=== PATIENT | female | born 1950 | race Caucasian/White ===

== ENCOUNTER 2021-12-23 13:00 | Outpatient (RCR) | payer MEDICARE, SELFPAY | END 2022-11-17 11:08 | disposition home or self-care (01) | PROVIDERS: Visit Provider Emergency Medicine Sports Medicine | DX: M17.0 Bilateral primary osteoarthritis of knee (principal); Z51.89 Encounter for other specified aftercare | CPT/HCPCS: 97110; 97140; 97161; 97162 ==

== ENCOUNTER 2022-05-17 15:15 | Outpatient (RCR) | payer MEDICARE, SELFPAY | END 2022-07-09 15:26 | disposition home or self-care (01) | PROVIDERS: PCP Emergency Medicine Sports Medicine; Referring Provider Emergency Medicine Sports Medicine; Visit Provider Emergency Medicine Sports Medicine | DX: M17.12 Unilateral primary osteoarthritis, left knee (principal); Z51.89 Encounter for other specified aftercare | CPT/HCPCS: 97110; 97162 ==

== ENCOUNTER 2023-04-20 13:00 | Outpatient (RCR) | payer MEDICARE, SELFPAY | END 2023-06-24 14:23 | disposition home or self-care (01) | PROVIDERS: PCP Emergency Medicine Sports Medicine | DX: M17.11 Unilateral primary osteoarthritis, right knee (principal); M25.561 Pain in right knee; R26.9 Unspecified abnormalities of gait and mobility; Z74.09 Other reduced mobility; Z51.89 Encounter for other specified aftercare | CPT/HCPCS: 97110; 97140; 97161 ==

== ENCOUNTER 2023-05-31 15:07 | Emergency (ER) | payer MEDICARE, SELFPAY ==
[2023-05-31 15:18] VITALS: BP 157/88; PULSE 73; RESP 16; TEMP 36.6; O2SAT 99; BMI 38.0
--- NOTE | 2023-05-31 15:59 | ED.GENADULT ---
HPI - General Adult General Chief complaint: Headache/Migraine Stated complaint: Migraine Time Seen by Provider: 05/31/23 15:39 History of Present Illness HPI narrative: This 72-year-old female was sent here from urgent care because of her report some visual changes related to headaches. The patient states that she has had headaches with visual changes throughout most of her life. They were happening frequently and intensely when she was in her young adult years and now over the past 10 years have resumed again. She states that her headache is rather mild. She does get which she calls glittery visual changes. She does not have any neurologic deficits otherwise. Related Data Home Medications Medication Instructions Recorded Confirmed acetaminophen 500 mg tablet 500 - 1,000 mg PO Q6H PRN pain 05/31/23 05/31/23 amlodipine 10 mg tablet 10 mg PO QDAY 05/31/23 05/31/23 calcium carbonate 500 mg calcium 500 mg PO QDAY 05/31/23 05/31/23 (1,250 mg) chewable tablet (Calcium 500) celecoxib 100 mg capsule mg PO 05/31/23 05/31/23 cetirizine 10 mg tablet 10 mg PO DAILY 05/31/23 05/31/23 cholecalciferol (vitamin D3) 62.5 mcg PO 05/31/23 05/31/23 mcg (2,500 unit) capsule duloxetine 20 mg capsule,delayed 40 mg PO QPM 05/31/23 05/31/23 release duloxetine 60 mg capsule,delayed mg PO 05/31/23 05/31/23 release levothyroxine 75 mcg tablet 75 mcg PO DAILY 05/31/23 05/31/23 losartan 50 mg tablet 50 mg PO DAILY 05/31/23 05/31/23 multivitamin with iron (Daily 1 tab PO QDAY 05/31/23 05/31/23 Multiple Vitamins with Iron tablet) omeprazole 20 mg capsule,delayed 20 mg PO DAILY 05/31/23 05/31/23 release topiramate 25 mg tablet 25 mg PO DAILY migraine 05/31/23 05/31/23 Allergies Allergy/AdvReac Type Severity Reaction Status Date / Time codeine Allergy Verified 05/31/23 14:31 Review of Systems Status of ROS: Reports: 10 or more systems reviewed and unremarkable except as noted in History and below Narrative: Constitutional: No fevers, no weight gain or loss. Eyes: No discharge. Visual changes as described above. HENT: No congestion, no sore throat, no ear pain. Cardiovascular: No chest pain, no palpitations. Respiratory: No shortness of breath, no wheezes, no cough. Gastrointestinal: No abdominal pain, no vomiting, no diarrhea. Genitourinary: No dysuria, no hematuria. Musculoskeletal: Normal range of motion. Skin: No rashes, no pruritis. Neurological: No dizziness, weakness, sensory change, speech change. Endo/Heme/Allergies: No bruising or bleeding. No polydipsia. Pysch: no suicidality, no anxiety, no insomnia. All other systems reviewed and are negative. Exam Narrative: Exam Narrative: Constitutional: Well-developed, well-nourished, no acute distress. HEENT: Normocephalic, atraumatic. Neck: Normal range of motion. Nontender. Supple. Heart: Intact distal pulses. Lungs: No chest discomfort. No wheezes, rhonchi, or rales. Abdomen: Nontender. Back: Normal range of motion. Extremities: Normal range of motion. No injury. Skin: Intact. No rash. Warm. No erythema or pallor. Neurologic: No altered sensation. No weakness. Alert and oriented. Speech is normal. No facial asymmetry. Tongue is midline. [id number] is normal. No pronator drift. [employer] strength is equal bilaterally. She is able to raise each leg from the bed to my hand. Psychiatric: No suicidality. No anxiety or depression. No insomnia. Nursing notes and vitals signs are reviewed. Const: Vital Signs, click to edit/add: Vital Signs - 24 hr 05/31/23 15:18 Temperature 97.8 F Pulse Rate [Pulse Oximeter] 73 Respiratory Rate 16 Blood Pressure [Ri ght Upper Arm] 157/88 H Pulse Oximetry 99 Oxygen Delivery Me thod Room Air Course Vital Signs Vital signs: Initial Vital Signs Temperature 97.8 F 05/31/23 15:18 Temperature Source Temporal Artery Scan 05/31/23 15:18 Pulse Rate 73 05/31/23 15:18 Respiratory Rate 16 05/31/23 15:18 Blood Pressure 157/88 H 05/31/23 15:18 Blood Pressure Mean 111 H 05/31/23 15:18 Blood Pressure Position Sitting 05/31/23 15:18 Pulse Oximetry 99 05/31/23 15:18 Oxygen Delivery Method Room Air 05/31/23 15:18 Vital Signs Temperature 97.8 F 05/31/23 15:18 Pulse Rate 73 05/31/23 15:18 Respiratory Rate 16 05/31/23 15:18 Blood Pressure 157/88 H 05/31/23 15:18 Pulse Oximetry 99 05/31/23 15:18 Oxygen Delivery Method Room Air 05/31/23 15:18 Temperature 97.8 F 05/31/23 15:18 Pulse Rate 73 05/31/23 15:18 Respiratory Rate 16 05/31/23 15:18 Blood Pressure 157/88 H 05/31/23 15:18 Pulse Oximetry 99 05/31/23 15:18 Oxygen Delivery Method Room Air 05/31/23 15:18 Medical Decision Making MDM Narrative Medical decision making narrative: This patient comes in reporting episodes of visual changes that she states are glittery. I showed her some images online of scintillating scotoma and she identified with some of these images as very similar to what she is experiencing. Her neurologic exam is completely normal. She does not have a severe headache at this time. She is taking Topamax and states that her headaches have not been particularly severe but she is having episodes of visual changes. She presented to urgent care and they became concerned about these symptoms and she was sent here. I did not receive any phone call from urgent care in this regard. I did discuss the role of CT imaging but indicated her exam is normal and such imaging is best for uncovering a fracture or bleed or tumor. In a process of shared decision-making she declined any tests at this time. The patient is reassured to hear about the clinical term scintillating scotoma. She states that she does drink lots of caffeinated tea every day. I explained that caffeine is a vasoconstrictor and may be contributing to some of these symptoms. The patient does have a follow-up appointment with her primary physician next week. I did describe signs and symptoms that would indicate a need for return and re-evaluation. Discharge Plan Discharge Clinical Impression: Migraine, Scintillating scotoma Patient Disposition: Home, Self-Care Condition: Stable Additional Instructions: Continue current plans. Consider decreasing caffeine intake. Follow up with MD as scheduled or return if worsening. Prescriptions: No Action duloxetine 60 mg capsule,delayed release(DR/EC) PO topiramate 25 mg tablet 25 mg PO DAILY losartan 50 mg tablet 50 mg PO DAILY omeprazole 20 mg capsule,delayed release(DR/EC) 20 mg PO DAILY duloxetine 20 mg capsule,delayed release(DR/EC) 40 mg PO QPM cetirizine 10 mg tablet 10 mg PO DAILY acetaminophen 500 mg tablet 500 - 1,000 mg PO Q6H PRN (Reason: pain) levothyroxine 75 mcg tablet 75 mcg PO DAILY celecoxib 100 mg capsule PO amlodipine 10 mg tablet 10 mg PO QDAY multivitamin with iron [Daily Multiple Vitamins/Iron] Tablet 1 tab PO QDAY calcium carbonate [Calcium 500] 500 mg calcium (1,250 mg) tablet,chewable 500 mg PO QDAY cholecalciferol (vitamin D3) 62.5 mcg (2,500 unit) capsule PO Follow Up/Referrals: Essence Le MD [Primary Care Provider] - Stand Alone Forms: [facility] Info Instructions
== END 2023-05-31 16:18 | disposition home or self-care (01) ==
LOC: ED 16:07
PROVIDERS: Emergency Provider Emergency Medicine Emergency Medical Services
DX: G43.909 Migraine, unspecified, not intractable, without status migrainosus (principal); H53.19 Other subjective visual disturbances
CPT/HCPCS: 99282; 99283; 99284

== ENCOUNTER 2023-07-05 15:41 | Emergency (ER) | payer MEDICARE, SELFPAY ==
[2023-07-05 15:45] VITALS: BP 164/84; PULSE 68; RESP 18; TEMP 36.4; O2SAT 99; BMI 38.0
--- NOTE | 2023-07-05 15:50 | ED_ITS ---
HPI - General Adult General Chief complaint: Eye Problems Stated complaint: eye pain Time Seen by Provider: 07/05/23 15:45 History of Present Illness HPI narrative: Patient reports that she awoke with diagram of black in left eye. Patient reports history of floaters but that this is different. 72 year old woman presents to the emergency department with concern of a loss of vision in her left eye. More specifically it sounds as though which she is describing is some black lacy or cobwebs over the left eye. Not actually loss of vision. This has cleared in density since 1st occurred upon waking this morning. Is not having pain. There has been no trauma. On review of records it appears she does have a history of migraines with visual changes describing glittering, sounds like scintillating scotoma, in the past. This apparently is different. Related Data Home Medications Medication Instructions Recorded Confirmed acetaminophen 500 mg tablet 500 - 1,000 mg PO Q6H PRN pain 05/31/23 05/31/23 amlodipine 10 mg tablet 10 mg PO QDAY 05/31/23 05/31/23 calcium carbonate 500 mg calcium 500 mg PO QDAY 05/31/23 05/31/23 (1,250 mg) chewable tablet (Calcium 500) celecoxib 100 mg capsule mg PO 05/31/23 05/31/23 cetirizine 10 mg tablet 10 mg PO DAILY 05/31/23 05/31/23 cholecalciferol (vitamin D3) 62.5 mcg PO 05/31/23 05/31/23 mcg (2,500 unit) capsule duloxetine 20 mg capsule,delayed 40 mg PO QPM 05/31/23 05/31/23 release duloxetine 60 mg capsule,delayed mg PO 05/31/23 05/31/23 release levothyroxine 75 mcg tablet 75 mcg PO DAILY 05/31/23 05/31/23 losartan 50 mg tablet 50 mg PO DAILY 05/31/23 05/31/23 multivitamin with iron (Daily 1 tab PO QDAY 05/31/23 05/31/23 Multiple Vitamins with Iron tablet) omeprazole 20 mg capsule,delayed 20 mg PO DAILY 05/31/23 05/31/23 release topiramate 25 mg tablet 25 mg PO DAILY migraine 05/31/23 05/31/23 Allergies Allergy/AdvReac Type Severity Reaction Status Date / Time codeine Allergy Verified 05/31/23 14:31 PFS [facility] Social History Smoking Status: Unknown if ever smoked How often do you have a drink containing alcohol: never AUDIT-C Alcohol total score: 0 Non-prescribed substance use: denies use Exam Narrative: Exam Narrative: Tall in stature. NAD. Skin is warm and dry. Head is atraumatic. Extraocular movements are full. Pupils are 3 mm and brisk in reactivity. Accommodating normally. On funduscopic exam appears to have more injuries in perhaps in the left versus the right. Vasculature appears normal. I am not clearly able to visualize optic discs. Eyes are not watering nor are they injected. Anterior chamber looks to be clear. No hyphema. Not particularly light sensitive. Const: Vital Signs, click to edit/add: Vital Signs - 24 hr 07/05/23 15:45 Temperature 97.6 F Pulse Rate [Pulse Oximeter] 68 Respiratory Rate 18 Blood Pressure [Ri ght Upper Arm] 164/84 H Pulse Oximetry 99 Oxygen Delivery Me thod Room Air Documenting provider has reviewed patient's vital signs: yes Course Vital Signs Vital signs: Initial Vital Signs Temperature 97.6 F 07/05/23 15:45 Temperature Source Temporal Artery Scan 07/05/23 15:45 Pulse Rate 68 07/05/23 15:45 Respiratory Rate 18 07/05/23 15:45 Blood Pressure 164/84 H 07/05/23 15:45 Blood Pressure Mean 110 H 07/05/23 15:45 Pulse Oximetry 99 07/05/23 15:45 Oxygen Delivery Method Room Air 07/05/23 15:45 Vital Signs Temperature 97.6 F 07/05/23 15:45 Pulse Rate 68 07/05/23 15:45 Respiratory Rate 18 07/05/23 15:45 Blood Pressure 164/84 H 07/05/23 15:45 Pulse Oximetry 99 07/05/23 15:45 Oxygen Delivery Method Room Air 07/05/23 15:45 Temperature 97.6 F 07/05/23 15:45 Pulse Rate 68 07/05/23 15:45 Respiratory Rate 18 07/05/23 15:45 Blood Pressure 164/84 H 07/05/23 15:45 Pulse Oximetry 99 07/05/23 15:45 Oxygen Delivery Method Room Air 07/05/23 15:45 Medical Decision Making MDM Narrative Medical decision making narrative: This sounds to be more of an internal I issue as opposed to ischemic event behind the eye or in the brain. Wonder if retinal detachment or maybe more likely vitreous. Blood pressure was noted to be a little elevated on arrival. I did call to [facility] and spoke with on-call physician. Also wondering about vitreous detachment. Will be arranging for close follow-up in the morning. While I was on the phone with [facility], Ms. Nicolas left from the ER. I call to confirm with her later that she thought the appointment was over. She has also in the interim has received follow-up phone call from [facility] to arrange appointment in the morning. Discussed rest/no heavy exertional activity in the meantime. Diagnosis is affected vision with concern of vitreous detachment. Discharge Plan Discharge Patient Disposition: Elopement Discharge Comment: Trying to coordinate cares speaking with Op[facility] ([facility]) and she left. May have received a phone call from them as well.
== END 2023-07-05 16:56 | disposition left against medical advice (07) ==
PROVIDERS: Emergency Provider Family Medicine
DX: H53.142 Visual discomfort, left eye (principal)
CPT/HCPCS: 99283; 99284

== ENCOUNTER 2024-07-03 12:48 | Emergency (ER) | payer MEDICARE, SELFPAY ==
[2024-07-03 13:39] VITALS: BP 164/92; PULSE 82; RESP 20; TEMP 36.5; O2SAT 98
--- NOTE | 2024-07-03 14:22 | ED.GENADULT ---
HPI - General Adult General Chief complaint: Rib Pain Stated complaint: Fell, rib pain Time Seen by Provider: 07/03/24 14:22 History of Present Illness HPI narrative: Arrives with right rib area and right thigh bruising and pain after tripping and falling last evening. Alert and oriented, VSS, ABCs intact. 73-year-old woman presenting to the emergency department with concern of right lower rib pain after trip and fall event last night. Got tangled in a tension barrier at a local sandwich shop yesterday. Ultimately the post was being pressed up against her right low ribs. Hurts to take a deep breath. Hurts to move. No hematuria. Able to ambulate without difficulty. Does not think she needs her leg evaluated. Has not anticoagulated. Related Data Home Medications ?Medication ?Instructions ?Recorded ?Confirmed acetaminophen 500 mg tablet 500 - 1,000 mg PO Q6H PRN pain 05/31/23 11/08/23 amlodipine 10 mg tablet 10 mg PO QDAY 05/31/23 11/08/23 calcium carbonate (Calcium 500) 500 mg PO QDAY 05/31/23 11/08/23 celecoxib 100 mg capsule mg PO 05/31/23 11/08/23 cetirizine 10 mg tablet 10 mg PO DAILY 05/31/23 11/08/23 cholecalciferol (vitamin D3) 62.5 mcg PO 05/31/23 11/08/23 mcg (2,500 unit) capsule duloxetine 20 mg capsule,delayed 40 mg PO QPM 05/31/23 11/08/23 release duloxetine 60 mg capsule,delayed mg PO 05/31/23 11/08/23 release levothyroxine 75 mcg tablet 75 mcg PO DAILY 05/31/23 11/08/23 losartan 50 mg tablet 50 mg PO DAILY 05/31/23 11/08/23 multivitamin with iron (Daily 1 tab PO QDAY 05/31/23 11/08/23 Multiple Vitamins with Iron tablet) omeprazole 20 mg capsule,delayed 20 mg PO DAILY 05/31/23 11/08/23 release topiramate 25 mg tablet 25 mg PO DAILY migraine 05/31/23 11/08/23 Allergies Allergy/AdvReac Type Severity Reaction Status Date / Time codeine Allergy Verified 11/08/23 14:01 Review of Systems Status of ROS: Reports: 6 or more systems reviewed and unremarkable except as noted in History and below [facility] Social History Smoking Status: Unknown if ever smoked How often do you have a drink containing alcohol: never AUDIT-C Alcohol total score: 0 Non-prescribed substance use: denies use Exam Narrative: Exam Narrative: Pleasant. Tall. NAD. Transitions gingerly. Does not appear labored in her breathing. Does have some pain with deep inspiratory effort. Lungs are clear. Heart in regular rate and rhythm. Abdomen is soft without evidence of injury/bruising. She is a little tender in the right upper quadrant but more so over that right rib right anterior margin and a little bit above that. I do not feel crepitus. She is tender in this same area however with pressing in her back and sternum oppositionally. No flank pain to percussion/palpation. Const: Vital Signs, click to edit/add: Vital Signs - 24 hr 07/03/24 13:39 Temperature 97.7 F Pulse Rate [Pulse Oximeter] 82 Respiratory Rate 20 Blood Pressure [Ri ght Upper Arm] 164/92 H Pulse Oximetry 98 Oxygen Delivery Me thod Room Air Documenting provider has reviewed patient's vital signs: yes Course Vital Signs Vital signs: Initial Vital Signs Temperature 97.7 F 07/03/24 13:39 Temperature Source Temporal Artery Scan 07/03/24 13:39 Pulse Rate 82 07/03/24 13:39 Respiratory Rate 20 07/03/24 13:39 Blood Pressure 164/92 H 07/03/24 13:39 Blood Pressure Mean 116 H 07/03/24 13:39 Pulse Oximetry 98 07/03/24 13:39 Oxygen Delivery Method Room Air 07/03/24 13:39 Vital Signs Temperature 97.7 F 07/03/24 13:39 Pulse Rate 82 07/03/24 13:39 Respiratory Rate 20 07/03/24 13:39 Blood Pressure 164/92 H 07/03/24 13:39 Pulse Oximetry 98 07/03/24 13:39 Oxygen Delivery Method Room Air 07/03/24 13:39 Temperature 97.7 F 07/03/24 13:39 Pulse Rate 82 07/03/24 13:39 Respiratory Rate 20 07/03/24 13:39 Blood Pressure 164/92 H 07/03/24 13:39 Pulse Oximetry 98 07/03/24 13:39 Oxygen Delivery Method Room Air 07/03/24 13:39 Medical Decision Making MDM Narrative Medical decision making narrative: Would presume at minimum rib edge/tip injury. Suspect rib fracture. This would probably be cartilaginous here however. Depending on findings on x-ray might need to scan abdomen with concern of secondary liver injury. Did take acetaminophen home. She does not take ibuprofen with history of gastric bypass. Consider evaluation with urinalysis to warrant further imaging. Chest x-ray with rib focus independently reviewed by me does show some irregularity at the right anterior rib edge. Not clearly with bony fracture. Lidocaine patch was placed in area maximal pain to unclear effect I did return with ultrasound for point of care ultrasound focus on hepato renal space and also reviewed cardiac images with her as well. No free fluid evident. Good, symmetric cardiac activity noted. Without obviously displaced fracture I do not think further imaging is necessary at this time Did place together to 6 in Pasha wraps around the lower rib edges. This did provide some improvement in her discomfort particularly with bending over. Urinalysis was also accomplished and was without evidence of blood. See patient discharge plan for further discussion Consider icing sore areas a couple of times daily over the next few days. Can wear these Pasha wraps as needed for comfort. On the days that you are wearing them I would be sure to take a few deep breaths a couple of times daily just to expand your lungs. I will call you if there is something requiring discussion in your urinalysis. Be seen for persistent and increasing/uncontrolled chest pain, worsening abdominal pain, fever. Medical Records Medical records reviewed: Yes I reviewed the patient's medical records Lab Data Lab results reviewed: Yes I reviewed the patient's lab results Labs: Lab Results 07/03/24 Range/Units Unknown Urine Color Yellow (Yellow) Urine Appearance Clear (Clear) Urine pH 7.0 (5.0-8.5) Ur Specific Poston 1.015 (1.000-1.030) Urine Protein Negative (Negative) Urine Glucose (UA) Negative (Negative) Urine Ketones Trace A (Negative) Urine Blood Negative (Negative) Urine Nitrite Negative (Negative) Urine Bilirubin 1+ A (Negative) Urine Urobilinogen 1.0 (0.2-1.0) Ur Leukocyte Esterase Negative (Negative) Urine RBC 0-2 (0-2) Urine WBC 0-2 (0-5) Ur Squamous Epith Cells None (None-Few) Urine Bacteria None (None) Discharge Plan Discharge Clinical Impression: Traumatic injury of rib Patient Disposition: Home, Self-Care Condition: Improved Additional Instructions: Consider icing sore areas a couple of times daily over the next few days. Can wear these Pasha wraps as needed for comfort. On the days that you are wearing them I would be sure to take a few deep breaths a couple of times daily just to expand your lungs. I will call you if there is something requiring discussion in your urinalysis. Be seen for persistent and increasing/uncontrolled chest pain, worsening abdominal pain, fever. Prescriptions: No Action duloxetine 60 mg capsule,delayed release(DR/EC) PO topiramate 25 mg tablet 25 mg PO DAILY losartan 50 mg tablet 50 mg PO DAILY omeprazole 20 mg capsule,delayed release(DR/EC) 20 mg PO DAILY duloxetine 20 mg capsule,delayed release(DR/EC) 40 mg PO QPM cetirizine 10 mg tablet 10 mg PO DAILY acetaminophen 500 mg tablet 500 - 1,000 mg PO Q6H PRN (Reason: pain) levothyroxine 75 mcg tablet 75 mcg PO DAILY celecoxib 100 mg capsule PO amlodipine 10 mg tablet 10 mg PO QDAY multivitamin with iron [Daily Multiple Vitamins/Iron] Tablet 1 tab PO QDAY calcium carbonate [Calcium 500] 500 mg calcium (1,250 mg) tablet,chewable 500 mg PO QDAY cholecalciferol (vitamin D3) 62.5 mcg (2,500 unit) capsule PO Follow Up/Referrals: Provider,Not a Local [Primary Care Provider] - Stand Alone Forms: [employer] Info Instructions
--- OUTSIDE RECORDS SUMMARY | 2024-07-03 14:54 | XMS_ITS | Encounter Summary ---
Author Organization [employer] Address [address], [place] [address] Care Team Providers Care Radiographer Angiogram Name Role Phone Keren Richards MD Primary Care Provider + [phone] Encounter Details Date Type Department Care Team (Late st Contact Info) Description 10/07/2016 Refill Order [facility] [address] [place] [id number] Keren Richards MD [address] [place] [address] [id number] Social History Tobacco Use Types Packs/Day Years Used Date Smoking Tobacco: Former Cigarettes Q uit: 05/31/1994 Smokeless Tobacco: Never Comments:10 Alcohol Use Standard Drinks/Week Comments No 0 (1 standard drink = 0.6 oz pur e alcohol) rarely Comments No Sex and Gender Information Value Date Recorded Sex Assigned at Not on file Legal Sex Female 6:09 AM CDT Gender Identity Not on file Sexual Orientation Not on file documented as of this encounter Nursing Notes * Ivis Galicia CMA - 10/07/2016 10:27 AM CDT Letter sent to ptRenetta Galicia CMA 10/07/2016, 10:27 AM documented in this encounter Plan of Treatment Not on file documented as of this encounter Results * (ABNORMAL) Basic Metabolic Panel (02/14/2017 1:03 PM CDT) Sodium 134(L) 136 - 145 mmol/L [facility] Potassium 3.5 3.5 - 5.1 mmol/L [facility] Chloride 101 98 - 109 mmol/L [facility] CO2 24 20 - 29 mmol/L [facility] Anion Gap (calc.) 9 7 - 16 mmol/L [facility] Glucose 97 70 - 180 mg/dl [facility] Calcium 8.5 8.4 - 10.2 mg/dl [facility] BUN 13 7 - 26 mg/dl [facility] Creatinine 0.96 0.55 - 1.02 mg/dl [facility] GFR, Estimated >60 >60 ml/min/1.7 3m2 [facility] GFR, Est., If Black >60 >60 ml/min/1.7 3m2 [facility] 02/14/2017 1:03 PM CDT 02/14/2017 1:04 PM CDT Narrative [facility] - 02/14/2017 6:55 PM CDT Performed at [facility], [address] [place] [address] us Keren Richards MD LAB_1 Final Result [facility] [phone] documented in this encounter Visit Diagnoses Diagnosis Encounter for long-term (current) use of medications- Primary Encounter for long-term (current) use of other medications Encounter for long-term (current) use of medications Encounter for long-term (current) use of other medications documented in this encounter Care Teams Radiographer Angiogram Relationship Specialty Start Date End Date Keren Richards MD [address] [place] [address] PCP - General 01/06/07 documented as of this encounter
--- OUTSIDE RECORDS SUMMARY | 2024-07-03 14:54 | XMS_ITS | Encounter Summary ---
Author Organization [facility] Address [address], [place] [address] Care Team Providers Care Casino Change Attendant Name Role Phone Keren Richards MD Primary Care Provider + [phone] Encounter Details Date Type Department Care Team ([facility] st Contact Info) Description 12/07/2018 Consent for Procedure/Treatme nt [facility] INFORMED CONSENT FOR SLEEP/AUDIO/VIDEO Social History Tobacco Use Types Packs/Day Years Used Date Smoking Tobacco: Former Cigarettes Q uit: 05/31/1994 Smokeless Tobacco: Never Comments:10 Alcohol Use Standard Drinks/Week Comments Yes 0 (1 standard drink = 0.6 oz pur e alcohol) rarely PHQ-2 Answer Date Recorded PHQ-2 Score 4 08/26/2018 Comments No Sex and Gender Information Value Date Recorded Sex Assigned at Not on file Legal Sex Female 6:09 AM CDT Gender Identity Not on file Sexual Orientation Not on file documented as of this encounter Plan of Treatment Not on file documented as of this encounter Visit Diagnoses Not on filedocumented in this encounter Care Teams Casino Change Attendant Relationship Specialty Start Date End Date Keren Richards MD [address] [place] [address] PCP - General 01/06/07 documented as of this encounter
--- OUTSIDE RECORDS SUMMARY | 2024-07-03 14:54 | XMS_ITS | Encounter Summary ---
Author Organization [facility] Address [address] [address] Care Team Providers Care Construction Electrician Name Role Phone Keren Richards MD Primary Care Provider [phone] Encounter Details Date Type Department Care Team (Late st Contact Info) Description 11/13/2015 Consent for Procedure/Treatme nt [facility] INFORMED CONSENT Social History Tobacco Use Types Packs/Day Years [...] on filedocumented in this encounter Care Teams Construction Electrician Relationship Specialty Start Date End Date Keren Richards MD [address] [place] [address] PCP - General 01/06/07 documented as of this encounter
--- OUTSIDE RECORDS SUMMARY | 2024-07-03 14:54 | XMS_ITS | Encounter Summary ---
Author Organization [facility] Address [address], [place] [address] Care Team Providers Care Brick Dropper Name Role Phone Hal Richards MD Primary Care Provider + [phone] Reason for Visit * Reason Comments Refill topiramate (TOPAMAX) 25 MG tablet [Pharmacy Med Name: TOPIRAMATE 25MG TABLETS] Encounter Details Date Type Department Care Team (Late st Contact Info) Description 06/25/2024 Refill [facility] [address] [place] [address] Hal Richards MD [address] [place] [address] [phone] Refill (topiramate (TOPAMAX) 25 MG tablet [Pharmacy Med Name: TOPIRAMATE 25MG TABLETS]) Social History Tobacco Use Types Packs/Day Years Used Date Smoking Tobacco: Former Cigarettes 3 20.1 0 05/02/1969 - 05/31/1989 Smokeless Tobacco: Never Comments:I didn't smoke 3 pa cks per day till the last 5 to 7 years. Alcohol Use Standard Drinks/Week Comments Not Currently 0 (1 standard drink = 0.6 oz pur e alcohol) 1 beer/week in the summer. PHQ-2 Answer Date Recorded PHQ-2 Score 0 04/16/2024 Comments No Sex and Gender Information Value Date Recorded Sex Assigned at Not on file Legal Sex Female 6:09 AM CDT Gender Identity Not on file Sexual Orientation Not on file documented as of this encounter Nursing Notes * Joaquina Treviño Xrwcomm - 06/25/2024 12:49 PM CST topiramate (TOPAMAX) 25 MG tablet [Pharmacy Med Name: TOPIRAMATE 25MG TABLETS] Medication started: 04/10/2019 Last ordered by HAL RICHARDS: 03/06/2024 (111 days ago) QTY: 90, Refills: 3, Sig: take 1 tablet by mouth daily for migraine headache (unchanged) -> The patient is requesting refills too soon, the current prescription is due to run out on 03/01/2025. -> Medication cannot be delegated. Last qualifying visit: 04/16/2024 (with HAL RICHARDS) Next scheduled visit: None [facility] Embedded Refills, Reference: [id number], 06/25/2024 12:49:05 PM APPOINTMENT SETTER, Pool: Refill Centralized Services - Primary Care ([id number]) INTMENT SETTER documented in this encounter Plan of Treatment Not on file documented as of this encounter Visit Diagnoses Not on filedocumented in this encounter Care Teams Brick Dropper Relationship Specialty Start Date End Date Hal Richards MD [address] [place] [address] PCP - General 01/06/07 documented as of this encounter
--- OUTSIDE RECORDS SUMMARY | 2024-07-03 14:54 | XMS_ITS | Encounter Summary ---
Author Organization [facility] Address [address] [address] Care Team Providers Care Easement Man Name Role Phone Keren Richards MD Primary Care Provider + [phone] Encounter Details Date Type Department Care Team (Late st Contact Info) Description 05/09/2019 Consent for Procedure/Treatme nt [facility] INFORMED CONSENT RECORD Social History Tobacco Use Types Packs/Day Years Used Date Smoking Tobacco: Former Cigarettes Q uit: 05/31/1994 Smokeless Tobacco: Never Comments:No Vap Alcohol Use Standard Drinks/Week Comments Yes 0 [...] on filedocumented in this encounter Care Teams Easement Man Relationship Specialty Start Date End Date Keren Richards MD [address] [place] [address] PCP - General 01/06/07 documented as of this encounter
--- OUTSIDE RECORDS SUMMARY | 2024-07-03 14:54 | XMS_ITS | Encounter Summary ---
Author Organization [facility] Address [address] [address] Care Team Providers Care Resort Keeper Name Role Phone Hal Richards MD Primary Care Provider + [phone] Reason for Visit * Reason Comments Refill DULoxetine (CYMBALTA ) 60 MG capsule [Pharmacy Med Name: DULOXETINE DR 60MG CAPSULES] Encounter Details Date Type Department Care Team (Late st Contact Info) Description 06/30/2024 Refill [facility] [address] [place] [address] Hal Richards MD [address] [place] [address] [phone] Refill (DULoxetine (CYMBALTA) 60 MG capsule [Pharmacy Med Name: DULOXETINE DR 60MG CAPSULES]) Social History Tobacco Use Types Packs/Day Years [...] as of this encounter Nursing Notes * Tanya Gates RN - 07/03/2024 10:57 AM CST per standing order [facility] * Joaquina Treviño Xrwcomm - 06/30/2024 5:58 AM CST DULoxetine (CYMBALTA) 60 MG capsule [Pharmacy Med Name: DULOXETINE DR 60MG CAPSULES] Medication started: 03/05/2019 Last ordered by HAL RICHARDS: 02/23/2024 (128 days ago) QTY: 90, Refills: 1, Sig: take 1 capsule by mouth every evening along with 20mg capsule (unchanged) -> The medication is active at more than one strength (60 mg on 02/23/2024, 20 mg on 02/23/2024). -> Refill x 12 months (until due for an office visit) -> Calculate the quantity and number of refills manually. Last qualifying visit: 04/16/2024 (with HAL RICHARDS) Next scheduled visit: None [facility] Embedded Refills, Reference: [id number], 06/30/2024 5:58:28 AM Maicol SPARKS: KELLY Refill Centralized Services - Primary Care ([id number]) [facility] documented in this encounter Plan of Treatment Not on file documented as of this encounter Visit Diagnoses Diagnosis Moderate episode of recurrent major depressive disorder (HRC) PTSD (post-traumatic stress disorder) (HRC) Posttraumatic stress disorder Primary osteoarthritis involving multiple joints documented in this encounter Care Teams Resort Keeper Relationship Specialty Start Date End Date Hal Richards MD [address] [place] [address] PCP - General 01/06/07 documented as of this encounter
--- OUTSIDE RECORDS SUMMARY | 2024-07-03 14:54 | XMS_ITS | Encounter Summary ---
Author Organization [employer] Address [address] [place] [address] Care Team Providers Care Infantry Weapons Officer Name Role Phone Keren Richards MD Primary Care Provider + [phone] Encounter Details Date Type Department Care Team (Late st Contact Info) Description 06/05/2012 [facility] [address] [place] [address] Kenneth Leary, DO [address] [place] [address] ARTHROSCOPY Social History Tobacco Use Types Packs/Day Years [...] on filedocumented in this encounter Care Teams Infantry Weapons Officer Relationship Specialty Start Date End Date Keern Richards MD [address] [place] [address] PCP - General 01/06/07 documented as of this encounter
--- OUTSIDE RECORDS SUMMARY | 2024-07-03 14:54 | XMS_ITS | Encounter Summary ---
Author Organization [facility] Address [address], [place] [address] Care Team Providers Care Fuse Cup Expander Name Role Phone Keren Richards MD Primary Care Provider + [phone] Encounter Details Date Type Department Care Team (Late st Contact Info) Description 02/08/2018 Consent for Procedure/Treatme nt [facility] Department INFORMED CONSENT RECORD Social History Tobacco [...] on filedocumented in this encounter Care Teams Fuse Cup Expander Relationship Specialty Start Date End Date Keren Richards MD [address] [place] [address] PCP - General 01/06/07 documented as of this encounter
--- OUTSIDE RECORDS SUMMARY | 2024-07-03 14:54 | XMS_ITS | Encounter Summary ---
Author Organization [facility] Address [address] [address] Care Team Providers Care Enterprise Systems Manager Name Role Phone Keren Richards MD Primary Care Provider + [phone] Encounter Details Date Type Department Care Team (Late st Contact Info) Description 02/22/2012 Consent for Procedure/Treatme nt [facility] Department INFORMED CONSENT RECORD Social History Tobacco [...] on file documented as of this encounter Progress Notes * [facility], PROVIDER - 02/22/2012 12:00 AM CDT documented in this encounter Plan of Treatment Not on file documented as of this encounter Visit Diagnoses Not on filedocumented in this encounter Care Teams Enterprise Systems Manager Relationship Specialty Start Date End Date Keren Richards MD [address] [place] [address] PCP - General 01/06/07 documented as of this encounter
--- OUTSIDE RECORDS SUMMARY | 2024-07-03 14:54 | XMS_ITS | Encounter Summary ---
Author Organization [facility] Address [address], [place] [address] Care Team Providers Care Toll Lineman Name Role Phone Hal Richards MD Primary Care Provider + [phone] Reason for Visit * Reason Comments Refill levothyroxine (SYNTH ROID) 75 MCG tablet [Pharmacy Med Name: LEVOTHYROXINE 0.075MG (75MCG) TABS] Encounter Details Date Type Department Care Team (Late st Contact Info) Description 06/06/2024 Refill [facility] [address] [place] [address] Hal Richards MD [address] [place] [address] Refill (levothyroxine (SYNTHROID) 75 MCG tablet [Pharmacy Med Name: LEVOTHYROXINE 0.075MG (75MCG) TABS]) Social History Tobacco Use Types Packs/Day Years [...] as of this encounter Nursing Notes * Marry Galicia RN - 06/08/2024 9:07 AM CST Further Assistance Needed on Refill from Clinician RN reviewed. Patient due for Lab(s). Medication has been refilled for 90 day supply per standing order. Refill x 3 months (until due for a(n) TSH check) Clinician to order lab(s) and document if patient is due for lab only visit or office visit and laband Route to [place] to schedule appointment Requested Prescriptions Pending Prescriptions Disp Refills levothyroxine (SYNTHROID) 75 MCG tablet [Pharmacy Med Name: LEVOTHYROXINE 0.075MG (75MCG) TABS] 90 Tablet 0 Sig: TAKE 1 TABLET(75 MCG) BY MOUTH DAILY FOR THYROID ING AND PRIMING OPERATOR * Joaquina Treviño Xrwcomm - 06/06/2024 12:29 PM CST levothyroxine (SYNTHROID) 75 MCG tablet [Pharmacy Med Name: LEVOTHYROXINE 0.075MG (75MCG) TABS] Medication started: 07/07/2018 Last ordered by HAL RICHARDS: 03/05/2024 (93 days ago) QTY: 90, Refills: 1, Sig: take 1 tablet(75 mcg) by mouth daily for thyroid (unchanged) -> Refill x 3 months (until due for a(n) TSH check) Last qualifying visit: 04/16/2024 (with HAL RICHARDS) Next scheduled visit: None TSH: 2.98 mIU/L on 06/14/2023 [facility] Embedded Refills, Reference: [id number], 06/06/2024 12:29:01 PM Maicol SPARKS: Refill Centralized Services - Primary Care ([id number]) ING AND PRIMING OPERATOR documented in this encounter Plan of Treatment Scheduled Orders Name Type Priority Associated Diagnoses Orde r Schedule TSH Lab Routine Hypothyroidism, unspecified type (HRC) as needed for 99 Occurrences starting 06/08/2024 until 06/08/2025 documented as of this encounter Visit Diagnoses Diagnosis Hypothyroidism, unspecified type (HRC) documented in this encounter Care Teams Toll Lineman Relationship Specialty Start Date End Date Hal Richards MD [address] [place] [address] PCP - General 01/06/07 documented as of this encounter
--- OUTSIDE RECORDS SUMMARY | 2024-07-03 14:54 | XMS_ITS | Encounter Summary ---
Author Organization [facility] Address [address] [address] Care Team Providers Care Concrete Pump Operator Name Role Phone Hal Richards MD Primary Care Provider + [phone] Reason for Visit * Reason Comments Medication Questions Entered automatical ly based on patient selection in [employer]. Encounter Details Date Type Department Care Team (Late st Contact Info) Description 06/27/2024 7:15 PM SLEEPER CUTTER E-Visit [facility] [address] [place] [address] [phone] Hal Richards MD [address] [place] [address] Chief Comp: Medication Questions Social History Tobacco Use Types Packs/Day Years [...] as of this encounter Nursing Notes * Beata Malone RN - 06/29/2024 9:48 AM CST Further Assistance Needed on Refill from Clinician RN reviewed. Medication not listed on standing order. Review pended order for accuracy and sign if appropriate Requested Prescriptions Pending Prescriptions Disp Refills topiramate (TOPAMAX) 25 MG tablet 90 Tablet GER * Joaquina Treviño Xrwcomm - 06/28/2024 9:55 AM CST topiramate (TOPAMAX) 25 MG tablet Medication started: 04/10/2019 Last ordered by HAL RICHARDS: 03/06/2024 (114 days ago) QTY: 90, Refills: 3, Sig: take 1 tablet by mouth daily for migraine headache (changed) -> This is a re-requested duplicate that should be manually reviewed. -> A duplicate request was processed on 06/25/2024. -> Unable to determine if sig has changed, review required. -> Medication cannot be delegated. Last qualifying visit: 04/16/2024 (with HAL RICHARDS) Next scheduled visit: None [facility] Embedded Refills, Reference: [id number], 06/28/2024 9:55:31 AM Maicol SPARKS: KELLY Refill Centralized Services - Primary Care ([id number]) PER CUTTER documented in this encounter Plan of Treatment Not on file documented as of this encounter Visit Diagnoses Not on filedocumented in this encounter Care Teams Concrete Pump Operator Relationship Specialty Start Date End Date Hal Richards MD [address] [place] [address] PCP - General 01/06/07 documented as of this encounter
--- OUTSIDE RECORDS SUMMARY | 2024-07-03 14:54 | XMS_ITS | Encounter Summary ---
Author Organization [employer] Address [address] [address] Care Team Providers Care Donor Recruiter Name Role Phone Keren Richards MD Primary Care Provider + [phone] Encounter Details Date Type Department Care Team (Late st Contact Info) Description 04/23/2016 Refill Order [facility] [address] [place] [address] Keren Richards MD [address] [place] [address] [phone] Social History Tobacco Use Types Packs/Day Years [...] Nursing Notes * Ivis Galicia CMA - 05/13/2016 5:09 PM CST Pt notified. Ivis Galicia CMA 05/13/2016, 5:09 PM HAMMER OPERATOR HELPER documented in this encounter Plan of Treatment Not on file documented as of this encounter Results * TSH with Free T4 (if TSH Abnormal) (07/13/2016 12:00 PM CDT) TSH, with Reflex 1.49 0.35 - 4.94 uIU/ml [facility] 07/13/2016 12:0 0 PM CDT 07/13/2016 12:18 PM CDT Narrative [facility] - 07/13/2016 5:07 PM CDT Performed at [facility], [address] [place] [address] us Keren Richards MD LAB_1 Final Result [facility] [phone] documented in this encounter Visit Diagnoses Diagnosis Encounter for long-term (current) use of medications- Primary Encounter for long-term (current) use of other medications Routine general medical examination at a health care facility- Primary Hypothyroidism, unspecified type (HRC) Essential hypertension (HRC) Unspecified essential hypertension Moderate episode of recurrent major depressive disorder (HRC) Polycystic ovarian syndrome (HRC) Polycystic ovaries Obsessive-compulsive disorder Obsessive-compulsive disorders Encounter for screening for malignant neoplasm of colon Special screening for malignant neoplasms, colon Screening for cervical cancer Screening for malignant neoplasm of the cervix Screening for viral disease Special screening examination for unspecified viral disease documented in this encounter Care Teams Donor Recruiter Relationship Specialty Start Date End Date Keren Richards MD [address] [place] [address] PCP - General 01/06/07 documented as of this encounter
--- OUTSIDE RECORDS SUMMARY | 2024-07-03 14:54 | XMS_ITS | Encounter Summary ---
Author Organization [facility] Address [address] [address] Care Team Providers Care Blow Up Operator Name Role Phone Keren Richards MD Primary Care Provider + [phone] Encounter Details Date Type Department Care Team ([facility] st Contact Info) Description 01/31/2007 Consent for Procedure/Treatment None [facility], Provider INFORMED CONSENT Social History Tobacco Use Types Packs/Day Years Used Date Smoking Tobacco: Former Cigarettes Q uit: 05/31/1994 Alcohol Use Standard Drinks/Week Comments Yes 0 (1 standard drink = 0.6 oz pur e alcohol) rarely Comments No Sex and Gender Information Value Date Recorded Sex Assigned at Not on file Legal Sex Female 6:09 AM CDT Gender Identity Not on file Sexual Orientation Not on file documented as of this encounter Progress Notes * Fritz Kent, Provider - 01/31/2007 12:00 AM CDT documented in this encounter Plan of Treatment Not on file documented as of this encounter Visit Diagnoses Not on filedocumented in this encounter Care Teams Blow Up Operator Relationship Specialty Start Date End Date Keren Richards MD [address] [place] [address] PCP - General 01/06/07 documented as of this encounter
--- OUTSIDE RECORDS SUMMARY | 2024-07-03 14:54 | XMS_ITS | Encounter Summary ---
Author Organization [facility] Address [address] [address] Care Team Providers Care Cash Teller Name Role Phone Keren Richards MD Primary Care Provider [phone] Encounter Details Date Type Department Care Team (Latest Contact Info) Description 10/04/2012 Correspondence [facility] [address] [place] [address] Joanne Ortiz MD HEALTH CARE PROVIDER REPORT Social History Tobacco Use Types Packs/Day Years [...] as of this encounter Progress Notes * Joanne Ortiz MD - 10/04/2012 12:00 AM CDT documented in this encounter Plan of Treatment Not on file documented as of this encounter Visit Diagnoses Not on filedocumented in this encounter Care Teams Cash Teller Relationship Specialty Start Date End Date Keren Richards MD [address] [place] [address] PCP - General 01/06/07 documented as of this encounter
--- OUTSIDE RECORDS SUMMARY | 2024-07-03 14:54 | XMS_ITS | Encounter Summary ---
Author Organization [facility] Address [address], [place] [address] Care Team Providers Care Continuous Improvement Engineer Name Role Phone Hal Richards MD Primary Care Provider + [phone] Reason for Visit * Reason Comments Refill levothyroxine (SYNTH ROID) 75 MCG tablet [Pharmacy Med Name: LEVOTHYROXINE 0.075MG (75MCG) TABS] Encounter Details Date Type Department Care Team (Late st Contact Info) Description 06/27/2024 Refill [facility] [address] [place] [address] Hal Richards MD [address] [place] [phone] Refill (levothyroxine (SYNTHROID) 75 MCG tablet [Pharmacy [...] of this encounter Nursing Notes * Tanya Gates, RN - 06/28/2024 4:25 PM CST Refill request denied. Medication was just filled and requesting too soon. E EPIDEMIOLOGIST * Joaquina Treviño Xrwcomm - 06/27/2024 6:00 AM CST levothyroxine (SYNTHROID) 75 MCG tablet [Pharmacy Med Name: LEVOTHYROXINE 0.075MG (75MCG) TABS] Medication started: 07/07/2018 Last ordered by HAL RICHARDS: 06/08/2024 (19 days ago) QTY: 90, Refills: 0, Sig: take 1 tablet(75 mcg) by mouth daily for thyroid (unchanged) -> TSH is overdue (performed 13 months ago, required every 12 months) -> Refill x 1 month (courtesy refill, overdue for a(n) TSH check) Last qualifying visit: 04/16/2024 (with HAL RICHARDS) Next scheduled visit: None TSH: 2.98 mIU/L on 06/14/2023 [facility] Embedded Refills, Reference: [id number], 06/27/2024 6:00:12 AM NURSE EPIDEMIOLOGIST, Pool: HP Refill Centralized Services - Primary Care ([id number]) E EPIDEMIOLOGIST documented in this encounter Plan of Treatment Not on file documented as of this encounter Visit Diagnoses Diagnosis Hypothyroidism, unspecified type (HRC) documented in this encounter Care Teams Continuous Improvement Engineer Relationship Specialty Start Date End Date Hal Richards MD [address] [place] [address] PCP - General 01/06/07 documented as of this encounter
--- OUTSIDE RECORDS SUMMARY | 2024-07-03 14:54 | XMS_ITS | Encounter Summary ---
Author Organization [facility] Address [address], [place] [address] Care Team Providers Care Hse Manager Name Role Phone Keren Richards MD Primary Care Provider + [phone] Encounter Details Date Type Department Care Team (Late st Contact Info) Description 01/02/2013 Consent for Procedure/Treatme nt [facility] Department INFORMED CONSENT RECORD Social [...] as of this encounter Progress Notes * [facility], PROVIDER - 01/02/2013 12:00 AM CDT documented in this encounter Plan of Treatment Not on file documented as of this encounter Visit Diagnoses Not on filedocumented in this encounter Care Teams Hse Manager Relationship Specialty Start Date End Date Keren Richards MD [address] [place] [address] PCP - General 01/06/07 documented as of this encounter
--- OUTSIDE RECORDS SUMMARY | 2024-07-03 14:54 | XMS_ITS | Encounter Summary ---
Author Organization [employer] Address [address], [place] [address] Care Team Providers Care Weatherization Specialist Name Role Phone Keren Richards MD Primary Care Provider + [phone] Encounter Details Date Type Department Care Team (Late st Contact Info) Description 09/18/2016 Refill Order [facility] [address] [place] [address] Keren Richards MD [address] [place] [address] [phone] Social History Tobacco Use Types Packs/Day Years [...] Nursing Notes * Ivis Galicia CMA - 09/20/2016 4:15 PM CDT Letter sent to pt. Ivis Galicia CMA 09/20/2016, 4:15 PM documented in this encounter Plan of Treatment Not on file documented as of this encounter Results * Hemoglobin, Blood (02/14/2017 1:03 PM CDT) Hemoglobin 13.8 12.0 - 16.0 g/dl [facility] 02/14/2017 1:03 PM CDT 02/14/2017 1:04 PM CDT Narrative [facility] - 02/14/2017 4:28 PM CDT Performed at [facility], [address] [place] [address] us Keren Richards MD LAB_1 Final Result [facility] [phone] documented in this encounter Visit Diagnoses Diagnosis Encounter for long-term (current) use of medications- Primary Encounter for long-term (current) use of other medications Encounter for long-term (current) use of medications Encounter for long-term (current) use of other medications documented in this encounter Care Teams Weatherization Specialist Relationship Specialty Start Date End Date Keren Richards MD [address] [place] [address] PCP - General 01/06/07 documented as of this encounter
--- OUTSIDE RECORDS SUMMARY | 2024-07-03 14:54 | XMS_ITS | Encounter Summary ---
Author Organization [facility] Address [address] [address] Care Team Providers Care Front Desk Host Name Role Phone Keren Richards MD Primary Care Provider + [phone] Encounter Details Date Type Department Care Team (Late st Contact Info) Description 02/09/2012 Correspondence [facility] [address] [place] [address] Keren Richards MD [address] [place] [phone] [facility] Social History Tobacco Use Types Packs/Day Years [...] as of this encounter Progress Notes * Keren Richards MD - 02/09/2012 12:00 AM CDT documented in this encounter Plan of Treatment Not on file documented as of this encounter Visit Diagnoses Not on filedocumented in this encounter Care Teams Front Desk Host Relationship Specialty Start Date End Date Keren Richards MD [address] [place] [address] PCP - General 01/06/07 documented as of this encounter
--- OUTSIDE RECORDS SUMMARY | 2024-07-03 14:54 | XMS_ITS | Encounter Summary ---
Author Organization [facility] [employer] Address [address], [place] [address] Care Team Providers Care Trumpet Player Name Role Phone Keren Richards MD Primary Care Provider + [phone] Encounter Details Date Type Department Care Team (Late st Contact Info) Description 02/09/2012 Correspondence [facility] [address] [place] [phone] Keren Richards MD [address] [place] [address] [phone] [facility] Social History Tobacco Use Types Packs/Day Years [...] on filedocumented in this encounter Care Teams Trumpet Player Relationship Specialty Start Date End Date Keren Richards MD [address] [place] [address] PCP - General 01/06/07 documented as of this encounter
--- OUTSIDE RECORDS SUMMARY | 2024-07-03 14:54 | XMS_ITS | Encounter Summary ---
Author Organization [employer] Address [address] [address] Care Team Providers Care Emergency Care Tech Name Role Phone Keren Richards MD Primary Care Provider + [phone] Reason for Visit * Procedure/Equipment (Routine) - Incomplete Specialty Diagnoses / Procedures Referred By Gloria rothman Referred To Contact Diagnoses Screening mammogram for breast cancer Procedures MM Mammogram Screening Bilat W 3D Phill W CAD MM Mammogram Screening Bilat W CAD Keren Richards MD [address] [place] [address] Phone: tel:[phone] fax: Referral ID Status Reason Start Date Expiration Date V isits Requested Visits Authorized [id number] Incomplete 04/16/2024 07/16/2025 1 1 Encounter Details Date Type Department Care Team (Latest Contact Info) Description 05/23/2024 1:30 PM DELIVERY MGR Ancillary Procedure [facility] Mammography [address] [place] [address] Screening mammogram for breast cancer Social History Tobacco Use Types Packs/Day Years [...] on file documented as of this encounter Procedures Procedure Name Priority Date/Time Associated Diagnosis Comments MM MAMMOGRAM SCREENING BILAT W 3D PHILL W CAD Routine 05/23/2024 1:32 PM DELIVERY MGR Screening mammogram for breast cancer documented in this encounter Results * MM Mammogram Screening Bilat W 3D Phill W CAD (05/23/2024 1:32 PM DELIVERY MGR) Anatomical Region Laterality Modality Breast Bilateral Mammography Impressions 05/23/2024 2:15 PM DELIVERY MGR : ACR BI-RADS Category 1: Negative RECOMMENDATION: Follow Up Imaging in 12 months - Bilateral The results and recommendations of this examination will be communicated to the patient. Narrative 05/23/2024 2:15 PM DELIVERY MGR MM MAMMOGRAM SCREENING BILAT W 3D PHILL W CAD performed on 05/23/24 FDA Accredited Facility: [place] [address] Compared to: 09/02/2022 MM Mammogram Screening Bilat W 3D Phill W CAD, 10/24/2020 MM Mammogram Screening Bilat W CAD, and 09/18/2018 MM Mammogram Screening Bilat W CAD FINDINGS: Bilateral screening mammogram was performed with the assistance of Computer-Aided Detection and breast tomosynthesis. There are scattered areas of fibroglandular density. There is no radiographic evidence of malignancy. us Keren Richards MD [facility] [place] Final Result documented in this encounter Visit Diagnoses Diagnosis Screening mammogram for breast cancer documented in this encounter Care Teams Emergency Care Tech Relationship Specialty Start Date End Date Keren Richards MD [address] [place] [phone] PCP - General 01/06/07 documented as of this encounter
--- OUTSIDE RECORDS SUMMARY | 2024-07-03 14:55 | XMS_ITS | Encounter Summary ---
Author Organization [facility] Address [address], [place] [address] Care Team Providers Care Sound Ranging Crewmember Name Role Phone Keren Richards MD Primary Care Provider + [phone] Encounter Details Date Type Department Care Team (Late st Contact Info) Description 07/08/2017 Consent for Procedure/Treatme nt [facility] Department INFORMED CONSENT RECORD Social History [...] on filedocumented in this encounter Care Teams Sound Ranging Crewmember Relationship Specialty Start Date End Date Keren Richards MD [address] [place] [address] PCP - General 01/06/07 documented as of this encounter
--- OUTSIDE RECORDS SUMMARY | 2024-07-03 14:55 | XMS_ITS | Encounter Summary ---
Author Organization [facility] Address [address] [address] Care Team Providers Care Composite Bond Technician Name Role Phone Hal Richards MD Primary Care Provider + [phone] Reason for Visit * Reason Comments Refill DULoxetine (CYMBALTA ) 20 MG capsule [Pharmacy Med Name: DULOXETINE DR 20MG CAPSULES] Encounter Details Date Type Department Care Team (Late st Contact Info) Description 07/01/2024 Refill [facility] [address] [place] [phone] Hal Richards MD [address] [place] [address] [phone] Refill (DULoxetine (CYMBALTA) 20 MG capsule [Pharmacy Med Name: DULOXETINE DR 20MG CAPSULES]) Social History Tobacco Use Types Packs/Day [...] 07/03/2024 10:57 AM 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 -> Refill x 12 months (until due for an office visit) -> Calculate the quantity and number of refills manually. Last qualifying visit: 04/16/2024 (with HAL RICHARDS) Next scheduled visit: [facility] Embedded Refills, Reference: [id number], 07/01/2024 6:01:08 AM Maicol SPARKS: KELLY Refill Centralized Services - Primary Care ([id number]) TER SUPPLY WORKER documented in this encounter Plan of Treatment Not on file documented as of this encounter Visit Diagnoses Diagnosis Moderate episode of recurrent major depressive disorder (HRC) documented in this encounter Care Teams Composite Bond Technician Relationship Specialty Start Date End Date Hal Richards MD [address] [place] [phone] PCP - General 01/06/07 documented as of this encounter
--- OUTSIDE RECORDS SUMMARY | 2024-07-03 14:55 | XMS_ITS | Encounter Summary ---
Author Organization [email or web address] Address [address], [place] [address] Care Team Providers Care County Extension Agent Name Role Phone Keren Richards MD Primary Care Provider + [phone] Encounter Details Date Type Department Care Team (Late st Contact Info) Description 08/21/2015 Correspondence [facility] [address] [place] [address] Keren Richards MD [address] [place] [phone] MEDICAL EQUIPMENT PROOF OF DELIVERY Social History Tobacco Use Types Packs/Day Years [...] on filedocumented in this encounter Care Teams County Extension Agent Relationship Specialty Start Date End Date Keren Richards MD [address] [place] [phone] PCP - General 01/06/07 documented as of this encounter
--- OUTSIDE RECORDS SUMMARY | 2024-07-03 14:55 | XMS_ITS | Encounter Summary ---
Author Organization [facility] Address [address] [place] [address] Care Team Providers Care Processing Clerk Name Role Phone Keren Richards MD Primary Care Provider [phone] Encounter Details Date Type Department Care Team ([facility] st Contact Info) Description 08/12/2014 Correspondence [facility] Radiology [address] [place] [phone] Radiology, Provider MRI SAFETY SHEET AND COMPATIBILITY FORM Social History Tobacco Use Types Packs/Day Years [...] on filedocumented in this encounter Care Teams Processing Clerk Relationship Specialty Start Date End Date Keren Richards MD [address] [place] [address] PCP - General 01/06/07 documented as of this encounter
--- OUTSIDE RECORDS SUMMARY | 2024-07-03 14:55 | XMS_ITS | Clinical Summary ---
Author Organization [facility] [employer] Address [address] [address] Care Team Providers Care Policy Writer Typist Name Role Phone Keren Richards MD Primary Care Provider + [phone] Source Comments You are receiving this document as you are listed as the primary care provider,follow-up provider, or the patient has been referred to you for consultation.This is in compliance with the Medicare andRegional Medical Centercaid EHR Incentive Program,which states Providers who transition their patient to another setting of careor provider of care or refers their patient to another provider of care shouldprovide summary care record for each transition of care or referral. [employer] Allergies Active Allergy Reactions Criticality Noted Date Comments Codeine Other, see comments 01/08/2011 States has gone away Propoxyphene Napsylate 12/26/2006 Chest pressure and vomiting Medications calcium carbonate-vitamin D 600-200 MG-UNIT tablet Take 1 Tablet by mouth daily. Active Multiple Vitamins-Minerals (MULTI VITAMIN/MINERALS) TABSIndications:n utrition Take 1 Tab by mouth daily. Indications: nutrition 013 Active ferrous sulfate 325 (65 FE) MG tabletIndications :Iron Deficiency Take 1 Tab by mouth three times a day. Indications: Iron Deficiency 270 Tab 11 013 Active cholecalciferol (AKA VITAMIN D3) 2000 UNITS tablet Take 1 Tablet (2,000 Units) by mouth daily. Active DOK 100 MG capsule TAKE 1 CAPSULE BY MOUTH TWICE DAILY 180 Cap 3 017 Active acetaminophen (TYLENOL) 500 MG tablet Take 1-2 Tablets (500-1,000 mg) by mouth every 6 hours as needed for Pain. Maximum acetaminophen dose is 4000 mg in 24 hours. 100 Tablet 023 Active omeprazole (PRILOSEC) 20 MG capsule TAKE 1 CAPSULE BY MOUTH EVERY DAY 1 HOUR BEFORE A MEAL 90 Capsule 3 023 Active ketoconazole (NIZORAL) 2 % shampooIndication s:Seborrheic dermatitis Apply topically three times a week. Apply to scalp and/or body, lather, wait 3-5 minutes, rinse, when flared then weekly for maintenance 120 mL 11 024 Active losartan (COZAAR) 50 MG tablet TAKE 1 TABLET(50 MG) BY MOUTH DAILY FOR HIGH BLOOD PRESSURE 90 Tablet 024 Active carbamide peroxide (DEBROX) 6.5 % ear drop solutionIndicatio ns:Aural Cerumen Removal Place 5 Drops into right ear daily as needed. Indications: Removal of Wax From the Ear 15 mL 6 024 Active cetirizine (ZYRTEC) 10 MG tablet TAKE 1 TABLET BY MOUTH DAILY 90 Tablet 3 025 Active levothyroxine (SYNTHROID) 75 MCG tabletIndications :Hypothyroidism, unspecified type (HRC) TAKE 1 TABLET(75 MCG) BY MOUTH DAILY FOR THYROID 90 Tablet 025 Active topiramate (TOPAMAX) 25 MG tablet Take 1 Tablet (25 mg) by mouth daily. 90 Tablet 3 025 Active DULoxetine (CYMBALTA) 60 MG capsuleIndication s:Moderate episode of recurrent major depressive disorder (HRC),PTSD (post-traumatic stress disorder) (HRC),Primary osteoarthritis involving multiple joints TAKE 1 CAPSULE BY MOUTH EVERY EVENING ALONG WITH 20MG CAPSULE 90 Capsule 3 025 Active DULoxetine (CYMBALTA) 20 MG capsuleIndication s:Moderate episode of recurrent major depressive disorder (HRC) TAKE 2 CAPSULES BY MOUTH EVERY NIGHT AT BEDTIME ALONG WITH THE 60MG DOSE 180 Capsule 3 025 Active DULoxetine (CYMBALTA) 20 MG capsuleIndication s:Moderate episode of recurrent major depressive disorder (HRC) TAKE 2 CAPSULES BY MOUTH EVERY NIGHT AT BEDTIME ALONG WITH THE 60MG DOSE 180 Capsule 1 024 2024 Discontinued DULoxetine (CYMBALTA) 60 MG capsuleIndication s:Moderate episode of recurrent major depressive disorder (HRC),PTSD (post-traumatic stress disorder) (HRC),Primary osteoarthritis involving multiple joints TAKE 1 CAPSULE BY MOUTH EVERY EVENING ALONG WITH 20MG CAPSULE 90 Capsule 1 024 2024 Discontinued levothyroxine (SYNTHROID) 75 MCG tabletIndications :Hypothyroidism, unspecified type (HRC) TAKE 1 TABLET(75 MCG) BY MOUTH DAILY FOR THYROID 90 Tablet 1 024 2024 Discontinued topiramate (TOPAMAX) 25 MG tablet TAKE 1 TABLET BY MOUTH DAILY FOR MIGRAINE HEADACHE 90 Tablet 3 024 2024 Discontinued(* Med change OR same med OR reorder, new dose/direction s) Active Problems Problem Noted Date Diagnosed Date Arthritis of right knee 01/07/2023 Overview (01/07/2023): Added automatically from request for surgery [id number] Arthritis of left knee 01/07/2023 Overview (01/07/2023): Added automatically from request for surgery [id number] Chronic low back pain 08/24/2020 Arthritis of carpometacarpal (CMC) joint of righ t thumb 05/03/2019 Overview (05/03/2019): Added automatically from request for surgery [id number] Carpal tunnel syndrome of right wrist 05/03/2019 Overview (05/03/2019): Added automatically from request for surgery [id number] Thumb pain, left 05/18/2017 Primary osteoarthritis of fi rst carpometacarpal joint of right hand 02/16/2017 Overview (02/16/2017): Added automatically from request for surgery [id number] Screening for malignant neoplasm of cervix 07/22 Overview (12/22/2016): [id number] NILM 2017 ASCUS, hpv negative 65 y.o. PLAN: cotest 06/2018 ; Pap test history Hallux rigidus of both feet 08/05/2015 Pes planus of both feet 08/05/2015 Hammer toes of both feet 08/05/2015 Arthritis, midfoot 08/05/2015 Primary osteoarthritis of right shoulder 016 Major depression 01/01/2014 Status post shoulder replacement 04/30/2013 Overview (12/22/2016): Status post shoulder replacement-left Herpes zoster 01/10/2011 Overview (12/22/2016): Herpes zoster- right T10 dermatome Status post gastric bypass for obesity 0 Hypertension 08/16/2008 Obsessive-compulsive disorder 12/27/2006 Overview (01/30/2015): Epic Bilateral polycystic ovarian syndrome 12/27/2006 Class 2 severe obesity due t o excess calories with serious comorbidity in adult 12/27/2006 Tear, meniscus of knee joint, lateral 12/27/2006 Overview (12/22/2016): Tear, Meniscus of Knee Joint, Lateral Right Posterior Horn PTSD (post-traumatic stress disorder) 12/27/2006 Hypothyroidism 12/27/2006 Allergic rhinitis 12/27/2006 Hypertrophic polyarthritis 12/27/2006 Overview (11/23/2023): Knees Overview: Feet, knees, neck Resolved Problems Problem Noted Date Diagnosed Date Resolved Date [facility] Case Management 09/19/19 19 10/19/2018 Overview (09/18/2018): Background: Diagnosis: PTSD, Major Depressive Disorder, OCD Current situation: Patient reports satisfaction with her primary doctor and psychotherapist. Patient reports that every 2-3 years her medications seem to stop working and need to be changed - she is looking for a psychiatry provider at this time. Providers outside of [facility]: psychotherapy. Goals/Recommendations: Outpatient Behavioral Health Intensive Care NurseFloorwalker Information: Tash Brown MS [facility] Action Plan: branch manager trainee provided several psychiatry options via mail week of 09/11 and will follow up with patient to ensure she has been able to establish with psychiatry. Endometrial polyp 06/20/2017 05/07/2019 Overview (06/20/2017): Added automatically from request for surgery [id number] Insomnia 04/12/2014 08/19/2014 Syncope and collapse 04/12/2013 014 Overview (12/22/2016): Syncope and collapse- while in PT Right knee pain 07/11/2012 08/15/2012 Uterine fibroid 05/07/2010 05/07/2019 Overview (12/22/2016): Uterine fibroids Pre-diabetes 12/27/2007 01/10/2011 Borderline diabetes mellitus 01/18/2007 12/27/2007 Overview (01/08/2015): ICD 10 Encounters Date Type Department Care Team Description 07/01/2024 Refill [facility] [address] [place] [address] [id number] Kreen Richards MD Refill (DULoxetine (CYMBALTA) 20 MG capsule [Pharmacy Med Name: DULOXETINE DR 20MG CAPSULES]) 06/30/2024 Refill [facility] [address] [place] [address] [phone] Keren Richards MD Refill (DULoxetine (CYMBALTA) 60 MG capsule [Pharmacy Med Name: DULOXETINE DR 60MG CAPSULES]) 06/27/2024 7:15 PM [employer] SUPERVISOR E-Visit [facility] [address] [place] [address] [phone] Keren Richards MD Chief Comp: Medication Questions 06/27/2024 Refill [facility] [address] [place] [address] [phone] Keren Richards MD Refill (levothyroxine (SYNTHROID) 75 MCG tablet [Pharmacy Med Name: LEVOTHYROXINE 0.075MG (75MCG) TABS]) 06/25/2024 Refill [facility] [address] [place] [address] [phone] Keren Richards MD Refill (topiramate (TOPAMAX) 25 MG tablet [Pharmacy Med Name: TOPIRAMATE 25MG TABLETS]) 06/06/2024 Refill [facility] [address] [place] [address] [phone] Keren Richards MD Refill (levothyroxine (SYNTHROID) 75 MCG tablet [Pharmacy Med Name: LEVOTHYROXINE 0.075MG (75MCG) TABS]) 05/23/2024 1:30 PM [employer] SUPERVISOR Ancillary Procedure [facility] [address] [place] [address] [id number] Screening mammogram for breast cancer 04/30/2024 Refill [facility] [address] [place] [address] [phone] Keren Richards MD Refill (cetirizine (ZYRTEC) 10 MG tablet [Pharmacy Med Name: CETIRIZINE 10MG TABLETS]) 04/16/2024 3:20 PM [employer] PL[employer] SUPERVISOR Lab Visit [facility] [address] [place] [address] [phone] Primary hypertension (HRC); PTSD (post-traumatic stress disorder) (HRC); Hypertrophic polyarthritis; Severe episode of recurrent major depressive disorder, without psychotic features (HRC) 04/16/2024 2:30 PM [employer] SUPERVISOR Office Visit [facility] [address] [place] [address] [phone] Keren Richards MD Primary hypertension (HRC) (Primary Dx); Impacted cerumen of right ear; 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 (HRC); PTSD (post-traumatic stress disorder) (HRC); Hypertrophic polyarthritis; Severe episode of recurrent major depressive disorder, without psychotic features (HRC); Class 2 severe obesity due to excess calories with serious comorbidity and body mass index (BMI) of 36.0 to 36.9 in adult (HRC); Screening mammogram for breast cancer from Last 3 Months Immunizations Immunization Administration Dates Next Due Flu Vac (3+ yrs) 01/17/2012, 1,02/02/2010,2006 Fluzone Qiv Multidose Vial 0 .25 (6-35 Mos) 01/14/2015,02/02/2013 Influenza IIV3 (Trivalent) F luzone Highdose, 65+ Yrs (26758) 02/21/2020,04/20/2019,03/13/2018 Influenza IIV4 (Quadrivalent ) 0.5mL (70563) 03/01/2017,01/30/2016,12/28/2013,2012 Influenza IIV4 (Quadrivalent ) Fluad, 65+ Yrs 02/27/2023,02/17/2021 Influenza IIV4 (Quadrivalent ) Fluzone, 65+ Yrs 02/10/2022,02/21/2020 Influenza, Unspecified Formulation 01/30/2015 Moderna Bivalent 12+ 09/06/2022,02/10/2022 Moderna COVID-19 12+ 06/14/2023 Moderna Monovalent 12+ 10/22/2021,2020,07/27/2020,2020 Moderna Monovalent Booster 12+ 06/07/2021 PCV20 ([id number]) 10/22/2021 Td 1952 Tdap 02/05/2020,06/28/2007 Zoster (Zostavax) 02/02/2013 Zoster RZV (Shingrix) 12/22/2018,10/17/2018 Family History Medical History Relation Name Comments Cancer Father Mother Depression Father Mother Hypertension Father Mother dep, melanoma, alcoholism, sex offense Cancer Mother Father Melanoma Depression Mother Father Hypertension Mother Father dep Hypertension Brother Nathalia Cancer, Breast Paternal Aunt COPD Paternal Grandfather Coronary Artery Disease Paternal Grandfather Alcohol/Drug Abuse Sister KYLEE dep obesi ty Depression Sister KYLEE Relation Name Status Comments Father Mother Mother Father Brother Nathalia Paternal Aunt Paternal Grandfather Sister KYLEE Social History Tobacco Use Types Packs/Day Years Used Date Smoking Tobacco: Former Cigarettes 3 20.1 0 05/02/1969 - 05/31/1989 Smokeless Tobacco: Never Tobacco Cessation:Counseling Given: Not Answered Comments:I didn't smoke 3 packs per day till the last 5 to [...] on file Sexual Orientation Not on file Last Filed Vital Signs Vital Sign Reading Time Taken Comments Blood Pressure 132/88 04/16/2024 2:11 PM [employer]PER[employer]OR Pulse 72 04/16/2024 2:11 PM [employer] SUPER[employer]OR Temperature 36.1 C (97 F) 04/16/2024 2:11 PM [employer] SUPER[employer]OR Respiratory Rate 16 04/16/2024 2:11 PM [employer] PLANT SUPERVISOR Oxygen Saturation 93% 03/18/2023 4:50 PM [employer]ANT SUPER[employer]OR Inhaled Oxygen Concentration - - Weight 110.2 kg (243 lb) 04/16/2024 2:11 PM [employer] PLANT SUPERVISOR Height 172.7 cm (5' 8) 06/14/2023 5:31 PM [employer]ANT SUPERVISOR Body Mass Index 36.95 06/14/2023 5:31 PM [employer]ANT SUPERVISOR Plan of Treatment Health Maintenance Due Date Last Done Comments RSV (1 - Risk 60-74 years 1-dose series) 2012 Dexa 2017 Medicare Annual Wellness Visit 05/02/2024 06/14/2023, 07/23/2022, 08/14/2021, Additional history exists COVID-19 Vaccine ( season) 2024 02/25/2024, 06/14/2023, 09/06/2022, Additional history exists FIT Colon Cancer Screening 01/19/202501/19, 08/23/2022, 08/27/2021, Additional history exists Mammogram 05/23/2025 05/23/2024, 05/0 07/2022, 10/24/2020, Additional history exists Cholesterol 08/15/2025 08/15/2020, /08/2015, 06/05/2008, Additional history exists DTaP/Tdap/Td (3 - Tdap) 02/04/2030 02/05/20, 06/28/2007, 1950 Colonoscopy Discontinued 12/26/2006 (Hist orical Completion) Cervical Cancer Screening Discontinued 2016, 02/08/2014, 01/11/2011, Additional history exists Hep C Screening (Preventive Services) Completed 07/13/2016 Zoster/Shingles Completed 12/22/2018, 09/30, 02/02/2013 Pneumococcal 50+ Yrs Completed 10/22/2021 Influenza Completed 02/25/2024, 01/31, 02/10/2022, Additional history exists HepA Aged Out No longer eligi ble based on patient's age to complete this topic HepB Aged Out No longer eligi ble based on patient's age to complete this topic Hib Aged Out No longer eligi ble based on patient's age to complete this topic IPV (Polio) Aged Out No longer eligi ble based on patient's age to complete this topic MCV4 Aged Out No longer eligi ble based on patient's age to complete this topic Meningococcal B Aged Out No longer el igible based on patient's age to complete this topic Medical Devices Implanted Type Area Gas Plumbing Inspector Device Identifier Shelf Expiration Date Model / Serial / Lot Comp Shld Tm Glenoid 46x52 - [id number] Implanted:Qty: 1 on 04/11/2013 by Kenneth Leary DO at [facility] DEVICE Left: SHOULDER [employer] 03/12/2018 [id number] / / [id number] - [id number] Implanted:Qty: 1 on 04/11/2013 by Kenneth Leary DO at [facility] DEVICE Left: SHOULDER [employer] 10/10/2022 [id number] / / [id number] Hd Hum Offset Bf 19x52 - [id number] Implanted:Qty: 1 on 04/11/2013 by Kenneth Leary DO at [facility] DEVICE Left: SHOULDER [employer] 12/10/2022 [id number] / / [id number] Scr Neida Asnis Iii Ti 4.0x30 - [id number] Implanted:Qty: 1 on 11/24/2015 at [facility] DEVICE Left: FOOT [employer] [id number] / / NA Scr Variax Lk T7 2.7x14 - [id number] Implanted:Qty: 1 on 11/24/2015 at [facility] DEVICE Left: FOOT [employer] [id number] / / NA Scr Variax Lk T7 2.7x16 - [id number] Implanted:Qty: 2 on 11/24/2015 at [facility] DEVICE Left: FOOT [employer] [id number] / / NA Scr Variax Lk T7 2.7x20 - [id number] Implanted:Qty: 1 on 11/24/2015 at [facility] DEVICE Left: FOOT [employer] [id number] / / NA Plt Variax Crvd Lt 5h - [id number] Implanted:Qty: 1 on 11/24/2015 at [facility] DEVICE Left: FOOT [employer] [id number] / / NA Rmr Concave 16mm - [id number] Implanted:Qty: 2 on 11/24/2015 by Tash Hamilton DPM at [facility] DEVICE Left: FOOT [employer] [id number] / / K-Wire .045 - [id number] Implanted:Qty: 2 on 03/30/2017 at [facility] DEVICE Left: Thumb Teleflex - [employer] 71-102 / / Wire 24 Ga Sterile - [id number] Implanted:Qty: 1 on 03/30/2017 at [facility] DEVICE Left: Thumb Comp Shld Tm Glenoid 46x52 - [id number] Implanted:Qty: 1 on 02/08/2018 by Kenneth Leary DO at [facility] DEVICE Right: SHOULDER [employer] 09/29/2018 [id number] / NONE / [id number] Stem Hum Tm 42deg 32w412 - [id number] Implanted:Qty: 1 on 02/08/2018 by Kenneth Leary DO at [facility] DEVICE Right: SHOULDER [employer] 08/29/2026 [id number] / NONE / [id number] Description:HUMERAL STEM 17M M DIAMETER, 130MM STEM LENGTH Hd Hum Ofst Bf 21x52 - [id number] Implanted:Qty: 1 on 02/08/2018 by Kenneth Leary DO at [facility] DEVICE Right: SHOULDER [employer] 11/30/2027 [id number] / NONE / [id number] Angel Bone Biomet R 1x40 - [id number] Implanted:Qty: 1 on 04/02/2022 by Meredith Salazar MD at [facility] DEVICE Left: KNEE [employer] 03/31/2024 [id number] / 0 / [id number] Description:500mg of Vancomy caitlin powder mixed with cement powder Tray Tib Ibeam Ascent 67mm - [id number] Implanted:Qty: 1 on 04/02/2022 by Meredith Salazar MD at [facility] DEVICE Left: KNEE [employer] 12/04/2031 [id number] / 0 / [id number] Comp Fem Cr Interlok 65mm Lt - [id number] Implanted:Qty: 1 on 04/02/2022 by Meredith Salazar MD at [facility] DEVICE Left: KNEE [employer] 03/06/2032 [id number] / 0 / [id number] Comp Patella 3peg Thn 34x7.8 - [id number] Implanted:Qty: 1 on 04/02/2022 by Meredith Salazar MD at [facility] DEVICE Left: KNEE [employer] 05/15/2026 [id number] / 0 / [id number] Angel Bone [employer] R 1x40 - [id number] Implanted:Qty: 2 on 03/18/2023 by Meredith Salazar MD at [facility] DEVICE Right: KNEE [employer] 06/29/2025 [id number] / 0 / [id number] Comp Fem Cr Interlok 65mm Rt - V[employer]ard - [id number] Implanted:Qty: 1 on 03/18/2023 by Meredith Salazar MD at [facility] DEVICE Right: KNEE [employer] 12/31/2032 [id number] / 0 / [id number] Tray Tib Cc I-Beam 71mm - [id number] Implanted:Qty: 1 on 03/18/2023 by Meredith Salazar MD at [facility] DEVICE Right: KNEE [employer] 01/06/2033 [id number] / 0 / [id number] Comp Patella 3peg Thn 37x8.6 - [employer]ard - [id number] Implanted:Qty: 1 on 03/18/2023 by Meredith Salazar MD at [facility] DEVICE Right: KNEE [employer] 04/29/2027 [id number] / 0 / [id number] Comp Tib Bear Antr Stab 10x71 - [id number] Implanted:Qty: 1 on 03/18/2023 by Meredith Salazar MD at [facility] DEVICE Right: KNEE [employer] 05/24/2027 [id number] / 0 / [id number] - [id number] Implanted:Qty: 1 on 04/02/2022 by Meredith Salazar MD at [facility] Left: KNEE [employer] 07/30/2024 [id number] / 0 / [id number] Description:Vanguard Knee Sy stem Tibial Bearing DCM ArCom Use With Vanguard Femoral Components Size 55mm-70mm Size: 10mm/71mm Procedures Procedure Name Priority Date/Time Associated Diagnosis Comments MM MAMMOGRAM SCREENING BILAT W 3D PHILL W CAD Routine 05/23/2024 1:32 PM [employer] SUPERVISOR Screening mammogram for breast cancer COMPREHENSIVE METABOLIC PANEL Routine 04/16/2024 3:24 PM [employer] SUPERVISOR Primary hypertension (HRC) PTSD (post-traumatic stress disorder) (HRC) Hypertrophic polyarthritis Severe episode of recurrent major depressive disorder, without psychotic features (HRC) FIT,OCCULT BLOOD, STOOL Routine 01/20/2024 6:45 PM CDT Encounter for screening for malignant neoplasm of colon CHOLESTEROL, TOTAL AND HDL Routine 08/15/2020 3:31 PM CDT Screening for endocrine, nutritional, metabolic and immunity disorder PAP TEST, ROUTINE Routine 07/13/2016 4:5 0 PM CDT Screening for cervical cancer HEPATITIS C ANTIBODY, WITH REFLEX Routine 07/13/2016 12:00 PM CDT Screening for viral disease from Last 3 Months or Most Recently Relevant to Health Maintenance Results * MM Mammogram Screening Bilat W 3D Phill W CAD (05/23/2024 1:32 PM [employer]UCTION PLANT SUPERVISOR) Anatomical Region Laterality Modality Breast Bilateral Mammography Impressions 05/23/2024 2:15 PM [employer] PLANT SUPERVISOR : ACR BI-RADS Category 1: Negative RECOMMENDATION: Follow Up Imaging in 12 months - Bilateral The results and recommendations of this examination will be communicated to the patient. Narrative 05/23/2024 2:15 PM [employer]UCTION PLANT SUPERVISOR MM MAMMOGRAM SCREENING BILAT W 3D PHILL W CAD performed on 05/23/24 FDA Accredited Facility: [place] [address] Compared to: 09/02/2022 MM Mammogram Screening Bilat [...] Keren Richards MD RAD [place] Final Result * (ABNORMAL) Comp Metabolic Panel (04/16/2024 3:24 PM [employer]UCTION PLANT SUPERVISOR) Sodium 137 136 - 145 mmol/L 04/16/2024 9:11 PM [facility] Potassium 4.1 3.5 - 5.1 mmol/L 04/16/2024 9:11 PM [facility] Chloride 104 98 - 109 mmol/L 04/16/2024 9:11 PM [facility] CO2 27 20 - 29 mmol/L 04/16/2024 9:11 PM [facility] Anion Gap 6 6 - 16 mmol/L 04/16/2024 9:11 PM [facility] Calcium 8.7 8.4 - 10.4 mg/dL 04/16/2024 9:11 PM [facility] BUN 10 7 - 26 mg/dL 04/16/2024 9:11 PM [facility] Creatinine 0.94 0.55 - 1.02 mg/dL 04/16/2024 9:11 PM [facility] Alkaline Phosphatase 114 40 - 150 U/L 04/16/2024 9:11 PM [facility] AST (SGOT) 26 10 - 40 U/L 04/16/2024 9:11 PM [facility] ALT (SGPT) 18 <=55 U/L 04/16/2024 9:11 PM [facility] Bilirubin, Total 0.5 0.2 - 1.2 mg/dL 04/16/2024 9:11 PM [facility] Protein, Total 6.5 6.4 - 8.3 g/dL 04/16/2024 9:11 PM [facility] Albumin 3.7 3.5 - 5.0 g/dL 04/16/2024 9:11 PM [facility] Glucose 106(H) 70 - 100 mg/dL 04/16/2024 9:11 PM [facility] Comment:The given reference range is for the fasting state. Non-fasting reference range for glucose is 70 - 180 mg/dL. GFR, Estimated >60 >60 mL/min/1. 73m2 04/16/2024 9:11 PM [facility] Hours Fasting 3.0 8 - 12 Hours 04/16/2024 9:11 PM [facility] Blood Venipuncture / Unknown 04/16/2024 3:24 PM [employer]UCTION PLANT SUPERVISOR 04/16/2024 3:24 PM [employer]UCTION PLANT SUPERVISOR Keren Richards MD LAB_1 Final Result Performing Organization Address City/[facility] Co de Phone Number [facility] [address] [address] [address] [place] [phone], [place] * FIT COLON RECTAL CANCER SCREENING - Year 4 (01/20/2024 6:45 PM CDT) FIT Specimen 1 Negative Negative 01/26/2024 2:37 AM CDT [facility] Stool Non-blood Collection / Unknown 01/20/2024 6:45 PM CDT 01/25/2024 12:52 PM CDT Keren Richards MD LAB_1 Final Result [facility] [address] * Cholesterol, Total and HDL (08/15/2020 3:31 PM CDT) Cholesterol 189 0 - 199 mg/dL 08/15/2020 8:28 PM CDT [facility] HDL Cholesterol 56 >=40 mg/dL 08/15/2020 8:28 PM CDT [facility] Non HDL Chol, Calculated 133 mg/dL 08/15/2020 8:28 PM CDT [facility] Blood Venipuncture / Unknown 08/15/2020 3:31 PM CDT 08/15/2020 3:31 PM CDT us Keren Richards MD LAB_1 Final Result Performing Organization Address [facility] Co de Phone Number [facility] [address] [phone] * Pap Test, Routine (07/13/2016 4:50 PM CDT) Cytology, Pap (NOTE) Relay Worker Cytology Report Patient Name: ROSA NICOLAS Taken: 07/13/2016 Received: 07/14/2016 Reported: 07/26/2016 Physician(s): KEREN RICHARDS Source of Specimen Pap Test, Routine Cervical/Endocer vical: Specimen Adequacy Satisfactory for evaluation. Atrophic specimen; endocervical component cannot be determined. Final Cytologic Interpretation/R esult EPITHELIAL CELL ABNORMALITIES Atypical squamous cells, undetermined significance (ASC-US). *Electronically Signed Out By* Brenda Mason CT (ASCP) Kamryn Hastings CT (ASCP) Pap Smear History Date of Last Menstrual Period: Menopausal Microscopic Description Microscopic examination is performed. [facility] Department of Pathology [address] [place] [id number] [facility] 07/13/2016 4:50 PM CDT 07/14/2016 8:42 AM CDT us Keren Richards MD LAB_1 Final Result [facility] [phone] * Hepatitis C Antibody, with Reflex (07/13/2016 12:00 PM CDT) Anti-HCV Negative (Non Reactive) [facility] Comment: Antibodies to HCV not detected. Does not exclude the possibility of exposure to HCV. 07/13/2016 12:0 0 PM CDT 07/13/2016 12:18 PM CDT Narrative [facility] - 07/13/2016 4:17 PM CDT Performed at [facility], [address] [place] [address] us Keren Richards MD LAB_1 Final Result [facility] [phone] from Last 3 Months or Most Recently Relevant to Health Maintenance Insurance [facility] MEDICARE ADVANTAGE [facility] MEDICARE ADVANTAGE [id number] [employer] MEDICARE ADVANTAGE [place] [id number] [facility] WORK COMP Advance Directives * Full Code (Latest Code Status on File) Date Activated Date Inactivated Comments 03/18/2023 1:12 PM 03/18/2023 7:24 PM * Full Code Date Activated Date Inactivated Comments 04/02/2022 2:39 PM 04/02/2022 5:35 PM * Full Code Date Activated Date Inactivated Comments 07/08/2017 7:13 AM 07/08/2017 4:06 PM * Full Code Date Activated Date Inactivated Comments 04/11/2013 3:27 PM 04/13/2013 2:07 PM * Full Code Date Activated Date Inactivated Comments 02/06/2013 11:06 PM 02/07/2013 1:57 PM Care Teams Policy Writer Typist Relationship Specialty Start Date End Date Keren Richards MD [address] [place] [id number] PCP - General 01/06/07
--- OUTSIDE RECORDS SUMMARY | 2024-07-03 14:55 | XMS_ITS | Encounter Summary ---
Author Organization [employer] Address [address] [place] [address] Care Team Providers Care Carpenter Refrigerator Name Role Phone Keren Richards MD Primary Care Provider + [phone] Encounter Details Date Type Department Care Team (Late st Contact Info) Description 06/01/2017 [facility] [address] [place] [id number] Kathy Gibson MD [address] [place], [place] [phone] CONSENT FOR TREATMENT OR PROCEDURE Social History Tobacco Use Types Packs/Day Years [...] on filedocumented in this encounter Care Teams Carpenter Refrigerator Relationship Specialty Start Date End Date Keren Richards MD [address] [place] [phone] PCP - General 01/06/07 documented as of this encounter
[2024-07-03 16:41] LABS: Appearance Urine Clear (Clear); Bilirubin Urine 1+ (Negative); Blood Urine Negative (Negative); Color Urine Yellow (Yellow); Glucose Urine Negative (Negative); Ketones Urine Trace (Negative); Leukocyte Esterase Urine Negative (Negative); Nitrite Urine Negative (Negative); Protein Urine Negative (Negative); Specific Gravity Urine 1.015 (1.000-1.030)
[2024-07-03 17:10] LABS: RBC Urine 0-2 (0-2); WBC Urine 0-2 (0-5)
== END 2024-07-03 18:54 | disposition home or self-care (01) ==
PROVIDERS: Emergency Provider Family Medicine
DX: S29.9XXA Unspecified injury of thorax, initial encounter (principal); W19.XXXA Unspecified fall, initial encounter
CPT/HCPCS: 71101; 81001; 99283; 99284